=== PATIENT | male | born 1975 | race Caucasian/White ===

== ENCOUNTER → 2016-06-05 | Outpatient (CLI) | payer OTHER ==
--- NOTE | 2016-06-05 17:30 | MR ---
MRI Cervical Spine (Without Contrast) History: R20.2, paresthesias of skin, S06.0X1S, concussion with loss of consciousness, Worker's Comp. Technique: Sagittal T1, T2, axial T2, and 3-D gradient echo MR sequences of the cervical spine withou t contrast. Findings: No cervical compression fractures. No destructive osseous lesions. Cerebellar tonsils ar e in normal position. 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 C2-C3: No disk herniation or stenosis. C3-C4: No disk herniation or stenosis. C4-C5: No disk herniation or stenosis. C5-C6: Mild degenerative disk disease with dorsal disk/osteophyte complex, mild degenerative retrolis thesis and bilateral uncovertebral osteophytes, resulting in mild central canal stenosis and mild ana ateral neural foraminal stenosis, left worse than right. C6-C7: No disk herniation or stenosis. C7-T1: Mild bilateral facet arthropathy without disk herniation or stenosis. Impression: 1. C5-C6 mild central canal stenosis and mild bilateral neural foraminal stenosis, secondary to degen erative grade 1 retrolisthesis, dorsal disk/osteophyte complex and bilateral uncovertebral osteophyte s. 2. 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 3. Please see above findings at specific disk levels.
== END ==
LOC: FIMAGING 12:44
PROVIDERS: ATTEND Psychiatry & Neurology Neurology
DX: M48.02 Spinal stenosis, cervical region (principal); S06.0X1S Concussion with loss of consciousness of 30 minutes or less, sequela; M43.12 Spondylolisthesis, cervical region; G95.0 Syringomyelia and syringobulbia

== ENCOUNTER → 2016-07-24 | Outpatient (CLI) | payer OTHER ==
[~2016-07-24] MED LIST: GADOBUTROL 10 ML VIAL IVP ONE
== END ==
LOC: FIMAGING 11:58
PROVIDERS: ATTEND Psychiatry & Neurology Neurology
DX: Q06.4 Hydromyelia (principal); M99.71 Connective tissue and disc stenosis of intervertebral foramina of cervical region
CPT/HCPCS: A9585

== ENCOUNTER → 2017-08-14 | Outpatient (CLI) | payer MEDICAID | LOC: SBRMNEURO 21:00 | PROVIDERS: ATTEND Family Medicine | DX: G47.33 Obstructive sleep apnea (adult) (pediatric) (principal); G47.39 Other sleep apnea ==

== ENCOUNTER → 2017-09-18 | Outpatient (CLI) | payer MEDICAID | LOC: SBRMNEURO 21:00 | PROVIDERS: ATTEND Internal Medicine Sleep Medicine | DX: G47.31 Primary central sleep apnea (principal); G47.33 Obstructive sleep apnea (adult) (pediatric) ==